=== PATIENT | male | born 1980 | race Caucasian/White ===

== ENCOUNTER → 2020-06-28 12:45 | Outpatient (CLI) | payer OTHER, SELFPAY ==
--- NOTE | ~2020-06-28 | CT_ITS ---
EXAMINATION: CT abdomen pelvis wo con DATE: 06/28/2020 13:38 INDICATION: Kidney calculus TECHNIQUE: Computed tomography (CT) of the abdomen and pelvis was performed without intravenous contr ast. Automated exposure control and iterative reconstruction technique were employed. Exam dose: 123 4.59 mGy-cm total exam DLP. COMPARISON: 06/28/2020 CT chest FINDINGS: There is an approximately 1.3 cm mass in the posterolateral middle lobe (series 4 image 1) Normal heart size. No pericardial or pleural effusion. The liver, gallbladder, bile ducts, spleen, pancreas, pancreatic duct and adrenal glands are unremark able. There is a 3 millimeter lower pole nonobstructing right renal calculus. There is a nonobstructing 6 m m mid left renal calculus. No ureteral calculus or hydroureteronephrosis. Normal caliber of the abdominal aorta. No intraperitoneal or retroperitoneal or pelvic mass lesion or adenopathy or ascites. The urinary bladder is unremarkable. The prostate gland and seminal vesicles are unremarkable. Normal appendix. No bowel obstruction, bowel wall thickening, pneumatosis or intraperitoneal free air . Included skeletal structures are unremarkable other than moderate degenerative disc disease at L5-S1. IMPRESSION: Bilateral nonobstructing renal calculus 1.3 cm mass of the middle lobe; differential diagnosis includes primary or metastatic pulmonary malig patty, granuloma, hamartoma. Consider PET/CT scan if prior CT examinations are not available for shauna escobar. Reviewed, dictated and finalized at [facility]. Reviewed, dictated and finalized at [facility]. FINISHER IMPRESSION: Bilateral nonobstructing renal calculus 1.3 cm mass of the middle lobe; differential diagnosis includes primary or meta static pulmonary malignancy, granuloma, hamartoma. Consider PET/CT scan if prio r CT examinations are not available for comparison.
== END ==
DX: N20.0 Calculus of kidney (principal)
CPT/HCPCS: 74176

== ENCOUNTER → 2020-06-28 12:57 | Outpatient (CLI) | payer OTHER, SELFPAY ==
--- NOTE | ~2020-06-28 | CT_ITS ---
EXAMINATION: CT chest w con DATE: 06/28/2020 13:39 INDICATION: Nodule of the middle lobe of right lung TECHNIQUE: Computed tomography (CT) of the chest was performed with 75 cc Omnipaque 350 intravenous c ontrast. Automated exposure control and iterative reconstruction technique were employed. Exam dose: 773.32 mGy-cm total exam DLP. COMPARISON: 06/28/2020 CT abdomen pelvis FINDINGS: 5 mm right upper lobe nodule (series 4 image 40) with up to 250 Hounsfield unit attenuation , likely a calcified pulmonary granuloma. 1.3 cm middle lobe nodule (image 61) with attenuation of 23 Hounsfield units. 9.4 mm superior segment right lower lobe pulmonary nodule (image 50) with attenuation of 23 Hounsfiel d units. 3.8 mm nodule along the left greater fissure in the region of the superior segment left lower lobe, p ossibly a benign additional node. No pulmonary infiltrate or consolidation. Normal size and homogeneous enhancement of the thyroid gland. Mild right hilar lymphadenopathy including right hilar 1.3 x 1.4 cm lymph node. No left hilar or medi astinal lymphadenopathy. Normal heart size. No pericardial or pleural effusion. No thoracic aortic aneurysm or dissection. The adrenal glands are unremarkable. There is an osteosclerotic focus in the lateral left fifth rib which may be a bone island. Osteoscler otic metastasis is unlikely given the lack of any other osteosclerotic lesions. IMPRESSION: 1.3 cm middle lobe mass and 9.4 mm right lower lobe superior segment mass and mild right hilar lymphadenopathy. Primary and/or metastatic malignant lung lesions with right hilar lymphadenop athy are suggested. Recommend comparison with any prior available CT thorax examinations, preferably dating back 2 or mor e years. If prior CT thorax examinations are not available, PET/CT imaging is recommended. Reviewed, dictated and finalized at [facility]. Reviewed, dictated and finalized at [facility]. ET BUILDER IMPRESSION: 1.3 cm middle lobe mass and 9.4 mm right lower lobe superior segme nt mass and mild right hilar lymphadenopathy. Primary and/or metastatic maligna nt lung lesions with right hilar lymphadenopathy are suggested. Recommend comparison with any prior available CT thorax examinations, preferabl y dating back 2 or more years[address] If prior CT thorax examinations are not available, PET/CT imaging is recommende d.
== END ==
DX: R91.1 Solitary pulmonary nodule (principal)
CPT/HCPCS: 71260; Q9967